=== PATIENT | female | born 1990 | race Caucasian/White ===

== ENCOUNTER 2022-12-06 00:53 | Emergency (ER) | payer SELFPAY ==
[2022-12-06 01:04] VITALS: BP 172/100; PULSE 96; RESP 20; TEMP 36.9; O2SAT 99; BMI 44.3
--- NOTE | 2022-12-06 01:21 | HMH.EDGENADL ---
Discharge Plan Disposition Patient Disposition: Left Against Medical Advice Prescriptions Prescriptions: New cefdinir 300 mg capsule 300 mg PO BID 10 Days Qty: 20 0RF Referrals Follow up/Referrals: Provider,Referral, MD [Primary Care Provider] - See instructions Activity Restrictions/Add. Instructions Additional Instructions/Restrictions: You have signed out AGAINST MEDICAL ADVICE. Please take your full course of antibiotics. If you change your mind and wish to return to the emergency department at any time please do not hesitate to return for continued evaluation. If you will not come to the emergency department please follow-up with your family doctor as soon as possible. Clinical Impressions Clinical Impression: Ureterolithiasis, UTI (urinary tract infection) Discharge ED Provider: Ej Ruiz General Adult HPI General Chief complaint: Abdominal Pain Stated complaint: Abd pain with vomiting Time Seen by Provider: 12/06/22 01:07 Mode of Arrival: Wheelchair Source of Information: Patient Limitations: No Limitations Description of Symptoms (Recalled from ER Triage Doc. by RN): pt states about 2h ago she started having sever LLQ pain and N/V. pt states upon registering here she started to get dizzy. pt reports LMP was 3months ago. pt took a test 3wks ago with a positive result. History of Present Illness HPI narrative: Patient is a 32-year-old female with no significant past medical history who presents emergency department for evaluation of left lower quadrant abdominal pain. Patient reportedly took a positive test 3 weeks ago, last menstrual period 3 months ago. Denies vaginal bleeding. has not been evaluated by physician, location has not been established. 2 hours ago she presented with severe left lower quadrant abdominal pain and vomiting causing her to present here for continued evaluation. No other acute complaints at this time. Related Data Previous Rx's Medication Instructions Recorded cefdinir 300 mg capsule 300 mg PO BID 10 days #20 caps 12/06/22 Allergies Allergy/AdvReac Type Severity Reaction Status Date / Time No Known Allergies Allergy Verified 12/06/22 01:14 [facility] Disclaimer: The information contained in this section may have been updated after the patient was seen, as this information can be updated by other users. Social History Smoking Status: Current every day smoker alcohol intake: never current occupational status: previously employed Travel in the last 8 weeks: None ROS Obtained: Yes Systems reviewed as appropriate & no additional complaints except as documented Physical Exam General General appearance: alert and in distress Head Head exam: atraumatic and normocephalic Eye Eye exam: Present PERRL and EOMI ENT ENT exam: Present mucous membranes moist Neck Neck exam: Present normal inspection Chest Chest inspection: Present normal inspection and symmetric chest wall rise Respiratory Respiratory exam: Present normal lung sounds bilaterally; Absent respiratory distress Cardiovascular Cardiovascular exam: Present regular rate and normal rhythm Abdominal Exam Abdominal exam: Present soft, tenderness (Left lower quadrant) and guarding (Voluntary) Extremities Exam Extremities exam: Present normal inspection Neurological Exam Neurological exam: Present alert and oriented X3 Psychiatric Psychiatric exam: Present normal affect Skin Skin exam: Present warm and dry Medical Decision Making Fransico Inquiry Pt receiving controlled substance: No Vital Signs: 12/06/22 01:04 12/06/22 01:41 12/06/22 02:01 Temperature 98.4 F Temperature Source Oral Pulse Rate 96 H 86 Pulse Rate [Right] 96 H Respiratory Rate 20 Blood Pressure 156/106 H 126/93 H Blood Pressure [Right Arm] 172/100 H Blood Pressure Mean [Right Arm] 124 02 Sat by Pulse Oximetry 99 99 92 L Oxygen Delivery Method Room Air Bailey
[2022-12-06 01:22] LABS: Basophils # 0.1 K/mm3 (0-0.2); Basophils % 0.5 % (0.1-2.0); Eosinophils # 0.2 K/mm3 (0.0-0.4); Eosinophils % 0.7 % (0.1-12.0); Hematocrit 42.5 % (37.0-47.0); Hemoglobin 14.3 g/dL (12.2-16.2); Lymphocytes # 3.8 K/mm3 (0.7-4.5); Lymphocytes % 17.6 % (10-50); Mean Corpuscular HGB Conc 33.7 g/dL (31.8-35.4); Mean Corpuscular Hemoglobin 26.5 pg (27.0-31.2); Mean Corpuscular Volume 78.5 fl (81-99); Mean Platelet Volume 8.1 fl (7.4-10.4); Monocytes # 0.6 K/mm3 (0.1-1.0); Monocytes % 2.8 % (1.7-9.3); Neutrophils # 16.7 K/mm3 (1.8-7.8); Neutrophils % 78.3 % (37.0-80.0); Platelet Count 447 K/mm3 (142-424); Red Blood Count 5.41 M/mm3 (4.20-5.40); Red Cell Distribution Width 14.9 % (11.5-17.5); White Blood Count 21.3 K/mm3 (4.8-10.8)
[2022-12-06 01:27] LABS: Alanine Aminotransferase 36 U/L (12-78); Aspartate Amino Transferase 30 U/L (14-36); Blood Urea Nitrogen 15 mg/dl (7-17); Chloride 100 mmol/L (98-107); Creatinine Clearance Estimated 93 mL/min (50-200); Estimated Glomerular Filt Rate 72 ml/min (>60); GFR (African American) 87 ML/MIN (>60); MANUAL DIFFERENTIAL MANUAL DIFFERENTIAL (MANUAL DIFF); Potassium 3.9 mmoL/L (3.5-5.1); Sodium 137 mmol/L (136-145)
[2022-12-06 01:28] LABS: Albumin Level 4.5 g/dl (3.5-5.0); Albumin/Globulin Ratio 1.1 (1.1-1.8); Alkaline Phosphatase 128 U/L (38-126); Anion Gap 16.9 mEq/L (5-15); Bilirubin,Total 0.3 mg/dl (0.2-1.3); Calcium 9.2 mg/dl (8.4-10.2); Carbon Dioxide 24 mmol/L (22.0-30.0); Glucose 188 mg/dl (74-100); Lipase 43 U/L (23-300); Total Protein,Serum 8.5 g/dl (6.3-8.2)
--- NOTE | 2022-12-06 01:31 | PC.NURSE ---
Notified rad pt needed transvaginal US.
--- NOTE | 2022-12-06 01:33 | PC.NURSE ---
aware of WBC
[2022-12-06 01:41] VITALS: BP 156/106; PULSE 96; O2SAT 99
[2022-12-06 01:43] LABS: Lactic Acid 1.6 mmol/L (0.7-2.1)
[2022-12-06 01:48] LABS: HCG Qualitative, Serum Negative (Negative)
[2022-12-06 02:01] VITALS: BP 126/93; PULSE 86; O2SAT 92
--- NOTE | 2022-12-06 02:07 | PC.NURSE ---
PT going to US. Lab advised she was unable to collect type and screen at this time. Advised her pt could go on up to US and we would notify her when pt returned and attempt to collect sample.
[2022-12-06 02:10] LABS: HCG,Quantitative < 2 mIU/ml (0-5.42)
[2022-12-06 02:15] LABS: Lymphocytes % 16 % (10-50); Monocytes % 2 % (2-9); Neutrophils % 82 % (42-76); Platelet Estimate Normal; RBC Morphology Normal; Total Cells Counted 100
--- NOTE | 2022-12-06 02:22 | CT_ITS ---
PROCEDURE INFORMATION: Exam: CT Abdomen And Pelvis With Contrast Exam date and time: 12/06/2022 2:33 AM Age: 32 years old Clinical indication: Abdominal pain; Additional info: Severe llq abdomen pain and tenderness TECHNIQUE: Imaging protocol: Computed tomography of the abdomen and pelvis with contrast. Radiation optimization: All CT scans at this facility use at least one of these dose optimization techniques: automated exposure control; mA and/or kV adjustment per patient size (includes targeted exams where dose is matched to clinical indication); or iterative reconstruction. Contrast material: ISOVUE; Contrast volume: 75 ml; Contrast route: IV; REPORTING DATA: Count of CT and Cardiac NM exams in prior 12 months: This patient has received 0 known CTs and 0 known cardiac nuclear medicine studies in the 12 months prior to the current study. COMPARISON: No relevant prior studies available. FINDINGS: Liver: Normal. No mass. Gallbladder and bile ducts: Prior cholecystectomy. Pancreas: Normal. No ductal dilation. Spleen: Normal. No splenomegaly. Adrenal glands: Normal. No mass. Kidneys and ureters: There is a 5 mm stone in the proximal left ureter with moderate left-sided hydro ureter and hydronephrosis. No right-sided stones are identified. Stomach and bowel: Unremarkable. No obstruction. No mucosal thickening. Appendix: No evidence of appendicitis. Intraperitoneal space: Unremarkable. No free air. No significant fluid collection. Vasculature: Unremarkable. No abdominal aortic aneurysm. Lymph nodes: Unremarkable. No enlarged lymph nodes. Urinary bladder: Unremarkable as visualized. Reproductive: Unremarkable as visualized. Bones/joints: Unremarkable. No acute fracture. Soft tissues: Unremarkable. IMPRESSION: 5 mm stone proximal left ureter with moderate left-sided hydronephrosis.
--- NOTE | 2022-12-06 02:24 | PC.NURSE ---
Went with Dr. Ruiz to radiology. pt refused the transvaginal US. provider explained the risks associated without receiving the test. pt verbalized her understanding and still denies the US.
[2022-12-06 03:20] LABS: Appearance,Urine CLEAR (Clear); Bilirubin,Urine Negative (Negative); Blood, Urine 3+ (Negative); Color,Urine YELLOW (Yellow); Glucose,Urine (UA) Negative (Negative); Ketones,Urine TRACE (Negative); Leukocyte Esterase,Urine 1+ (Negative); Nitrate,Urine POSITIVE (Negative); PH,Urine 6.5 (5.0-8.5); Protein,Urine Negative (Negative); Specific Gravity, Urine <= 1.005 (1.005-1.030); Urobilinogen,Urine 0.2 EU/dl (0.2)
[2022-12-06 03:21] LABS: Microscopic, Urine URINE MICROSCOPIC (MICROSCOPIC)
[2022-12-06 03:34] LABS: Bacteria,Urine 2+ /lpf; RBC,Urine Occasional #/hpf (0-3); WBC,Urine 20-50 #/hpf (0-3)
[2022-12-06 04:45] VITALS: BP 122/90; PULSE 79; RESP 16; TEMP 36.8
--- NOTE | 2022-12-06 05:35 | PC.NURSE ---
0439 bedside discussing risks of pt refusing transfer to a facility with urology
== END 2022-12-06 04:50 | disposition left against medical advice (07) ==
PROVIDERS: Emergency Provider Emergency Medicine
DX: N13.0 Hydronephrosis with ureteropelvic junction obstruction (principal); N39.0 Urinary tract infection, site not specified; B96.29 Other Escherichia coli [E. coli] as the cause of diseases classified elsewhere; R10.32 Left lower quadrant pain; D72.829 Elevated white blood cell count, unspecified; F17.210 Nicotine dependence, cigarettes, uncomplicated
CPT/HCPCS: 74177; 80053; 81001; 83605; 83690; 84702; 84703; 85007; 85025; 87040; 87086; 87088; 87186; 96361; 96374; 96375; 96376; 99285; J0696; J2405; Q9967